=== PATIENT | female | born 1990 | race Caucasian/White ===

== ENCOUNTER 2016-07-20 15:23 | Outpatient (CLI) | payer OTHER ==
[~2016-07-20] VITALS: Ht 160 cm; Wt 113.8 kg
[~2016-07-20 15:23] MED LIST: PNV11TAB PO
[2016-07-20 15:32] VITALS: Ht 160 cm; Wt 113.8 kg
[2016-07-20 16:08] LABS: ADD UMIC YES; URINE BILIRUBIN (Dip) NEGATIVE (NEGATIVE); URINE BLOOD (Dip) NEGATIVE (NEGATIVE); URINE COLOR LT. YELLOW (YELLOW); URINE GLUCOSE (Dip) NEGATIVE (NEGATIVE); URINE KETONES (Dip) TRACE (NEGATIVE); URINE LEUKOCYTE ESTERASE (Dip) TRACE (NEGATIVE); URINE NITRITE (Dip) NEGATIVE (NEGATIVE); URINE TOTAL PROTEIN (Dip) TRACE (NEGATIVE); URINE UROBILINOGEN (Dip) 1.0 E.U./dL (0.1-1.0)
--- NOTE | 2016-07-20 16:09 | RADRPT ---
PROCEDURE: US OB biophysical profile. CLINICAL INDICATION: decreased movements, spontaneous rupture of membranes TECHNIQUE: Multiple sonographic images of the pelvis were obtained. The images were reviewed on a PACS workstation. COMPARISON: 04/16/2016 FINDINGS: There is a single viable intrauterine gestation. Cardiac activity is present with 121 beats per min [place]. There is a vertex presentation. The placenta is anterior. There is no evidence of placental abruption. There is a normal amount of amniotic fluid with an IGNACIO = 13.3 cm. Biophysical profile: movement 2/2 tone 2/2. breathing 2/2 IGNACIO 2/2 Total 02/16 RPTAT: AA . IMPRESSION: Normal biophysical profile. . .Lamine Connolly MD, MD Date Time Electronically viewed and signed by .Lamine Connolly MD, MD on 07/20/2016 16:09 .S/
--- NOTE | 2016-07-20 16:16 | RADRPT ---
PROCEDURE: Limited obstetric ultrasound CLINICAL INDICATION: Spontaneous rupture of membranes TECHNIQUE: Multiple transverse and longitudinal grayscale images of the pelvis were obtained tra nsvaginally.. COMPARISON: same day FINDINGS: The cervix is closed with a length of 3.8 cm. RPTAT: AA IMPRESSION: Cervix length measures 3.8 cm. .Lamine Connolly MD, MD Date Time Electronically viewed and signed by .Lamine Connolly MD, MD on 07/20/2016 16:16 .S/
[2016-07-20 16:24] LABS: URINE RBCS 0-2 /HPF (0)
[2016-07-20 16:25] LABS: BACTERIA,URINE FEW; SQUAMOUS EPITHELIAL CELL,UR FEW
--- NOTE | 2016-07-20 17:21 | PN ---
DATE: The patient is a 36-year-old who presents at 33 weeks complaining of leaking of fluid. No other com plaints. Category 1 tracing. Ultrasound, labs, ROM Plus are all negative. The patient stable. Th e patient will be discharged home. Followup will be OB this week. ER precautions given. The patie nt is stable upon discharge. Dictated By: HEIDI GANDHI MD /NTS Conf#: [id number] DID#: [id number]
--- NOTE | 2016-07-20 18:18 | TRIAGE ---
OB Triage Datetime Report Generated by CPN: 07/20/2016 18:18 Datetime: 07/20/2016 16:38 Labor Evaluation Frequency: 0 Monitor Mode: External Resting Tone [place]: Relaxed Heart Rate FHR Baseline Rate: 125 Monitor Mode: External US Variability: Moderate 6-25 bpm Accelerations: 10X10 Decelerations: None Category: Category I Pain Assessment Pain Scale: 0 Pain Presence: None/Denies Pain Type: N/A Pain Goal: 3 Pain Relief Measures: Comfort Measures Datetime: 07/20/2016 16:35 Stage of : OB Triage Datetime: 07/20/2016 15:54 Stage of : OB Triage Datetime: 07/20/2016 15:44 Stage of : OB Triage Datetime: 07/20/2016 15:39 Vaginal Exam Dilatation (cms): 0.0 Exam By: s harsha Vaginal Bleeding: None Cervix, Consistency: Firm Cervix, Position: Posterior Datetime: 07/20/2016 15:28 Stage of : OB Triage Assessment Type: Triage EGA: 33.5 Maternal Assessment Level of Consciousness: Fully Conscious DTR's/Clonus: DTRs 2+; No Clonus Headache: Denies Blurred Vision: No Respiratory Effort: Unlabored; Regular Rhythm; Equal Expansion Breath Sounds, Left: Clear and Equal Breath Sounds, Right: Clear and Equal Nausea/Vomiting: Denies RUQ Epigastric Pain: Denies Lower Extremities Edema: None Degree: None Upper Extremities Edema: None Degree: None Facial Edema: None Temperature Route: Axillary Fall Risk Assessment History of Falling: (0) No Secondary Diagnosis: (0) No Ambulatory Aid: (0) Bedrest/Nurse Assist IV Therapy: (0) No Gait: (0) Normal/Bedrest/Immobile Mental Status: (0) Oriented to Own Ability Fall Score: 0 Fall Risk Score Definition: No Risk: No action required Labor Evaluation Frequency: 0 Monitor Mode: External Resting Tone [place]: Relaxed Heart Rate FHR Baseline Rate: 135 Monitor Mode: External US Variability: Moderate 6-25 bpm Decelerations: None Category: Category I Pain Assessment Pain Scale: 0 Pain Presence: None/Denies Pain Type: N/A Pain Goal: 3 Pain Relief Measures: Comfort Measures Datetime: 07/20/2016 15:27 Time of Arrival: 07/20/2016 15:13 Arrived By: Ambulatory Arrived From: Office Chief Complaint: SENT FROM OFFICE TO R/O SROM, DENIES UC'S OR BLEEDING Movement: Present Contractions: Denies/Absent Rupture of Membranes: Unsure Vaginal Bleeding: None Vaginal Discharge: Present Recent Sexual Intercouse: Denies Abdominal Trauma: Not Applicable Patient Complaints: None Time Provider Notified: 07/20/2016 15:54 Provider Notified: RENE Initial Plan: MONITOR, ROM PLUS, NITRAZINE, BPP/IGNACIO, CL
== END 2016-07-20 17:21 | disposition home or self-care (01) ==
LOC: OBT 15:23 → L-D 15:24 → OBT 17:21
PROVIDERS: ATTEND Obstetrics & Gynecology
DX: O26.893 Other specified pregnancy related conditions, third trimester (principal); O36.8130 Decreased fetal movements, third trimester, not applicable or unspecified; Z3A.33 33 weeks gestation of pregnancy
CPT/HCPCS: 76817; 76818; 81001; 84112; Z7500; 81003; G0463

== ENCOUNTER 2016-08-06 13:26 | Outpatient (CLI) | payer OTHER ==
[~2016-08-06] VITALS: Ht 160 cm; Wt 115.4 kg
[2016-08-06 13:54] VITALS: Ht 160 cm; Wt 115.4 kg
[2016-08-06 13:55] VITALS: BP 134/76; PULSE 88; RESP 19
[2016-08-06 13:56] LABS: ADD UMIC YES; URINE BILIRUBIN (Dip) NEGATIVE (NEGATIVE); URINE BLOOD (Dip) NEGATIVE (NEGATIVE); URINE COLOR LT. YELLOW (YELLOW); URINE GLUCOSE (Dip) NEGATIVE (NEGATIVE); URINE KETONES (Dip) NEGATIVE (NEGATIVE); URINE LEUKOCYTE ESTERASE (Dip) 1+ (NEGATIVE); URINE NITRITE (Dip) NEGATIVE (NEGATIVE); URINE TOTAL PROTEIN (Dip) TRACE (NEGATIVE); URINE UROBILINOGEN (Dip) 0.2 E.U./dL (0.1-1.0)
[2016-08-06 13:58] LABS: BASOPHILS % 0.3 % (0.0-2.0); EOSINOPHILS # 0.1 10^3/ul (0.0-0.5); EOSINOPHILS % 0.7 % (0.0-7.0); HEMATOCRIT 33.9 % (37.0-47.0); HEMOGLOBIN 11.7 g/dl (12.0-16.0); LYMPHOCYTES # 2.2 10^3/ul (0.8-2.9); LYMPHOCYTES % 26.5 % (15.0-51.0); MEAN CORPUSCULAR HEMOGLOBIN 29.2 pg (29.0-33.0); MEAN CORPUSCULAR HGB CONC 34.5 g/dl (32.0-37.0); MEAN CORPUSCULAR VOLUME 84.7 fl (82.0-101.0); MEAN PLATELET VOLUME 8.7 fl (7.4-10.4); MONOCYTE # 0.5 10^3/ul (0.3-0.9); MONOCYTES % 5.6 % (0.0-11.0); NEUTROPHIL # 5.5 10^3/ul (1.6-7.5); NEUTROPHILS % 66.9 % (39.0-77.0); PLATELET COUNT 213 10^3/UL (140-440); RED BLOOD COUNT 4.01 10^6/ul (4.20-5.40); RED CELL DISTRIBUTION WIDTH 13.9 % (11.5-14.5); UNCORRECTED WBC 8.3 10^3/ul (4.8-10.8); WHITE BLOOD COUNT 8.3 10^3/ul (4.8-10.8)
[2016-08-06 14:00] LABS: CONDITION 1
[2016-08-06 14:01] LABS: ALBUMIN 3.5 g/dl (3.3-4.9)
[2016-08-06 14:02] LABS: POTASSIUM 4.3 mmol/L (3.5-5.1)
[2016-08-06 14:04] LABS: ALBUMIN/GLOBULIN RATIO 0.87; BILIRUBIN,INDIRECT 0.3 mg/dl (0-1.1); BILIRUBIN,TOTAL 0.3 mg/dl (0.2-1.3); CREATININE 0.38 mg/dl (0.44-1.00); TOTAL PROTEIN 7.5 g/dl (6.1-8.1)
[2016-08-06 14:05] LABS: CALCIUM 8.9 mg/dl (8.4-10.2)
[2016-08-06 14:40] LABS: BACTERIA,URINE FEW
[2016-08-06 14:45] LABS: URINE RBCS NONE SEEN /HPF (0)
--- NOTE | 2016-08-06 15:06 | RADRPT ---
PROCEDURE: US OB. CLINICAL INDICATION: Low IGNACIO TECHNIQUE: Transabdominal views of the pelvis are available for review. COMPARISON: Obstetrical ultrasound from 07/20/2016 FINDINGS: There is a single intrauterine gestation in a vertex position. The heart rate is present at 164 bpm. Abdominal circumference is 34.98 cm. Femur length is 7.57 cm. The estimated weight is 3628 grams. (Above the 97th percentile) The placenta is anterior. There is no evidence of placenta previa or a placental abruption. The IGNACIO measures 13.1 cm. RPTAT: AA IMPRESSION: Normal IGNACIO of 13.1 cm. Estimated weight is 3628 g which is above the 97th percentile. Physician Gt Date Time Electronically viewed and signed by Maxx Tavares Physician on 08/06/2016 15:06 /
--- NOTE | 2016-08-06 15:42 | QN ---
Documentation Comment 26 y/o female at 36.1 weeks sent in to R/O PI all blood pressures are NL all labs appear normal dedra D/C gome with F/U in NST MARION MUELLER MD Aug 06, 2016 15:42
== END 2016-08-06 15:54 | disposition home or self-care (01) ==
LOC: OBT 13:26 → L-D 13:27 → OBT 15:54
PROVIDERS: ATTEND Obstetrics & Gynecology
DX: O26.893 Other specified pregnancy related conditions, third trimester (principal); Z3A.36 36 weeks gestation of pregnancy
CPT/HCPCS: 76815; 80053; 81001; 84560; 85025; Z7500; 81003; G0463

== ENCOUNTER 2016-08-21 10:25 | Inpatient (IN) | payer OTHER ==
[~2016-08-21] VITALS: Ht 160 cm; Wt 118.8 kg
[2016-08-21 11:12] VITALS: Ht 160 cm; Wt 118.8 kg
[2016-08-21 11:18] VITALS: BP 132/58; PULSE 77; RESP 20
[2016-08-21] MEDS ORDERED: ACETAMINOPHEN/CODEINE #3 TAB PO PRN (11:30)
[2016-08-21] MEDS ORDERED: CARBOPROST 250 MCG INJ IM PRN (11:30)
[2016-08-21] MEDS ORDERED: BUTORPHANOL 2 MG INJ IV PRN (11:30)
[2016-08-21] MEDS ORDERED: AMPICILLIN 2 GM/NS (PMX) 100 ML IV ONE (11:30)
[2016-08-21] MEDS ORDERED: METHYLERGONOVINE 0.2 MG INJ IM PRN (11:30)
[2016-08-21] MEDS ORDERED: MISOPROSTOL 200 MCG TAB PR PRN (11:30)
[2016-08-21] MEDS ORDERED: IBUPROFEN 600 MG TAB PO PRN (11:30)
[2016-08-21] MEDS ORDERED: LIDOCAINE 1% (MPF) 30 ML INJ INJ PRN (11:30)
[2016-08-21] MEDS ORDERED: OXYTOCIN 30 UNITS/LR 500 ML IV SCH ×3 (11:30→14:30)
[2016-08-21] MEDS ORDERED: OXYTOCIN 30 UNITS/LR 500 ML IV PRN (11:30)
[2016-08-21] MEDS: LACTATED RINGER'S 1,000 ML IV SCH ×3 (11:36→23:34)
[2016-08-21 11:50] LABS: ADD SCAN DIFF NO
[2016-08-21 11:54] LABS: BASOPHILS % 0.2 % (0.0-2.0); EOSINOPHILS # 0.1 10^3/ul (0.0-0.5); EOSINOPHILS % 0.8 % (0.0-7.0); HEMATOCRIT 30.6 % (37.0-47.0); HEMOGLOBIN 10.4 g/dl (12.0-16.0); LYMPHOCYTES # 1.9 10^3/ul (0.8-2.9); LYMPHOCYTES % 30.6 % (15.0-51.0); MEAN CORPUSCULAR HEMOGLOBIN 29.1 pg (29.0-33.0); MEAN CORPUSCULAR VOLUME 85.5 fl (82.0-101.0); MEAN PLATELET VOLUME 11.4 fl (7.4-10.4); MONOCYTE # 0.4 10^3/ul (0.3-0.9); MONOCYTES % 6.3 % (0.0-11.0); NEUTROPHIL # 3.9 10^3/ul (1.6-7.5); NEUTROPHILS % 61.9 % (39.0-77.0); PLATELET COUNT 173 10^3/UL (140-415); RED BLOOD COUNT 3.58 10^6/ul (4.20-5.40); RED CELL DISTRIBUTION WIDTH 13.6 % (11.5-14.5); WHITE BLOOD COUNT 6.4 10^3/ul (4.8-10.8)
[2016-08-21 12:07] LABS: POTASSIUM 4.3 mmol/L (3.5-5.1)
[2016-08-21 12:09] LABS: BILIRUBIN,INDIRECT 0.3 mg/dl (0-1.1); BILIRUBIN,TOTAL 0.3 mg/dl (0.2-1.3); CREATININE 0.39 mg/dl (0.44-1.00)
[2016-08-21 12:10] LABS: ALBUMIN/GLOBULIN RATIO 0.88; CALCIUM 8.8 mg/dl (8.4-10.2); TOTAL PROTEIN 6.4 g/dl (6.1-8.1)
[2016-08-21 12:15] LABS: INR 0.99; PROTIME 13.1 Sec (12.2-14.2)
[2016-08-21 12:16] LABS: PARTIAL THROMBOPLASTIN TIME 27.3 Sec (25.0-35.0)
[2016-08-21 12:38] LABS: ADD UMIC YES; URINE BILIRUBIN (Dip) NEGATIVE (NEGATIVE); URINE BLOOD (Dip) NEGATIVE (NEGATIVE); URINE COLOR LT. YELLOW (YELLOW); URINE GLUCOSE (Dip) NEGATIVE (NEGATIVE); URINE KETONES (Dip) NEGATIVE (NEGATIVE); URINE LEUKOCYTE ESTERASE (Dip) TRACE (NEGATIVE); URINE NITRITE (Dip) NEGATIVE (NEGATIVE); URINE TOTAL PROTEIN (Dip) TRACE (NEGATIVE); URINE UROBILINOGEN (Dip) 0.2 E.U./dL (0.1-1.0)
[2016-08-21 12:56] LABS: URINE RBCS 0-2 /HPF (0)
[2016-08-21] MEDS ORDERED: LACTATED RINGER'S 1,000 ML IV PRN (13:00)
[2016-08-21] MEDS: AMPICILLIN 1 GM/NS (PMX) 50 ML IV SCH ×3 (15:24→23:32)
[2016-08-21] MEDS ORDERED: MINERAL OIL LIGHT 10 ML VIAL TOP PRN (18:00)
[2016-08-21] MEDS ORDERED: FENTAnyl 2MCG/ML-ROPIV 0.2% 100 ML ONE (20:17)
[2016-08-21] MEDS ORDERED: ONDANSETRON 4 MG INJ IV PRN (20:30)
[2016-08-21] MEDS ORDERED: NALOXONE (0.4 MG/ML) INJ IV PRN (20:30)
[2016-08-21] MEDS ORDERED: DIPHENHYDRAMINE 50 MG INJ IV PRN (20:30)
--- NOTE | 2016-08-21 20:48 | HP ---
Date/Time of Note Date/Time of Note DATE: 08/21/16 TIME: 20:26 OB - History Hx of Present Free Text/Dictation admitted for induction of the labor because of Hx of HTN and elevated BP in NST Estimated Due Date: Aug 31, 2016 : 3 Para: 2 Care: Good Care Ultrasounds: Normal mid trimester US Obstetrical Complications: Other (PIH or Htn) Medical Complications: Other (? HTN) Past Family/Social History * Past Medical, Surgical, Family and Obstetric Histories reviewed from chart. GBS Status: Positive OB Admission Exam Vital Signs Vital Signs Vital Signs Date Time Temp Pulse Resp B/P Pulse Ox O2 Delivery O2 Flow Rate FiO2 08/21/16 11:18 98.3 77 20 132/58 Room Air Physical Exam HEENT: WNL Heart: Rhythm Normal Lungs: Clear, Equal Abdomen: WNL Extremities: Normal Reflexes: Normal Cervical Dilatation: 2cm Effacement: 25% Station: -3 Membranes: Intact Heart Rate: 140's Accelerations: Accelerations Present Decelerations: No Decelerations Varibility: Marked Contractions on Admission: None Last 72 hours Lab Results CBC & BMP 08/21/16 11:33 Liver Function Test 08/21/16 11:33 Alanine Aminotransferase (ALT/SGPT) 21 Albumin 3.0 L Alkaline Phosphatase 133 H Aspartate Amino Transf (AST/SGOT) 22 Direct Bilirubin 0.00 Total Protein 6.4 OB Assessment/Plan Reason for admission: induction of labor Other Assessment: ?PIH( reported to have 2 + proteinuria and elevated BP) term gestation Induction Method: per Pitocin Protocol MARION MUELLER MD Aug 21, 2016 20:46
[2016-08-21] MEDS ORDERED: MAGNESIUM SULFATE 3 GM in SOD CHLORIDE 0.9% 100 ML IVPB ONE (21:00)
[2016-08-21] MEDS ORDERED: ACETAMINOPHEN 325 MG TAB PO PRN (21:00)
[2016-08-21] MEDS ORDERED: MAGNESIUM SULFATE 20 GM/500 ML 500 ML IV SCH (21:30)
[2016-08-22] MEDS: FENTAnyl 2MCG/ML-ROPIV 0.2% 100 ML BAG EPI SCH ×2 (03:12→11:04)
[2016-08-22] MEDS: AMPICILLIN 1 GM/NS (PMX) 50 ML IV SCH ×4 (03:23→16:29)
[2016-08-22] MEDS: LACTATED RINGER'S 1,000 ML IV SCH (11:42)
--- NOTE | 2016-08-22 19:00 | LDN ---
Date/Time of Note Date/Time of Note DATE: 08/22/16 TIME: 18:57 Delivery Summary of a viable over intact perineum Placenta Delivered: Spontaneously, Intact & Complete Meconium: none Perineum intact?: Yes Anesthesia type: Epidural Estimated blood loss: 200 Sponge & Needle done & correct: Yes All needle counts correct: Yes Any foreign bodies felt in the: No Problems: Delivery Information Sex Infant Sex: male Apgars 1 Minute: 9 5 Minute: 9 Suctioning Nose & mouth suctioned at adan: Yes Delee suction performed: No Umbilical Cord Umbilical cord with: 3 Vessels Cord presentations: no nuchal cord Cord Blood was obtained: Yes Mother & Baby Disposition Disposition Mom & Baby to Maternity; Good: Yes (mother and baby were recovered in good condition) Mom transferred to: Other (maternity ) Baby to NICU: No MARION MUELLER MD Aug 22, 2016 18:59
[2016-08-22] MEDS: LACTATED RINGER'S 1,000 ML IV* SCH (20:25)
[2016-08-22] MEDS ORDERED: MISOPROSTOL 200 MCG TAB PR PRN (20:30)
[2016-08-22] MEDS ORDERED: ACETAMINOPHEN/CODEINE #3 TAB PO PRN ×2 (20:30)
[2016-08-22] MEDS ORDERED: WITCH HAZEL/GLYCERIN PAD PR PRN (20:30)
[2016-08-22] MEDS ORDERED: METHYLERGONOVINE 0.2 MG INJ IM PRN (20:30)
[2016-08-22] MEDS ORDERED: CARBOPROST 250 MCG INJ IM PRN (20:30)
[2016-08-22] MEDS ORDERED: OXYTOCIN 30 UNITS/LR 500 ML IV PRN (20:30)
[2016-08-22] MEDS ORDERED: BENZOCAINE 20% 56 ML SPRAY TOP PRN (20:30)
[2016-08-22] MEDS ORDERED: ZOLPIDEM 5 MG TAB PO PRN (20:30)
[2016-08-22] MEDS ORDERED: LANOLIN 7 GM TUBE TOP PRN (20:30)
[2016-08-22] MEDS ORDERED: DIBUCAINE 1% 30 GM OINT PR PRN (20:30)
[2016-08-22] MEDS: MAGNESIUM HYDROXIDE 30ML CUP PO SCH (21:00)
[2016-08-22] MEDS: SENNA/DOCUSATE NA (8.6MG/50MG) TAB PO SCH (21:00)
[2016-08-22 21:30] VITALS: BP 146/88; PULSE 74; RESP 20
[2016-08-22] MEDS ORDERED: OXYTOCIN 30 UNITS/LR 500 ML IV SCH (21:30)
[2016-08-22 22:45] VITALS: BP 130/66; PULSE 72
[2016-08-23 00:30] VITALS: BP 134/76; PULSE 68; RESP 18
[2016-08-23] MEDS: LACTATED RINGER'S 1,000 ML IV* SCH (00:47)
[2016-08-23] MEDS: CEPHALEXIN 500 MG CAP PO SCH ×5 (00:48→23:54)
[2016-08-23] MEDS: IBUPROFEN 600 MG TAB PO SCH ×5 (00:48→23:54)
[2016-08-23 03:45] VITALS: BP 109/54; PULSE 75; RESP 18
[2016-08-23 07:30] LABS: BASOPHILS % 0.4 % (0.0-2.0); EOSINOPHILS # 0.1 10^3/ul (0.0-0.5); EOSINOPHILS % 1.1 % (0.0-7.0); HEMATOCRIT 29.6 % (37.0-47.0); LYMPHOCYTES # 2.7 10^3/ul (0.8-2.9); LYMPHOCYTES % 34.9 % (15.0-51.0); MEAN CORPUSCULAR HEMOGLOBIN 29.1 pg (29.0-33.0); MEAN CORPUSCULAR HGB CONC 33.7 g/dl (32.0-37.0); MEAN CORPUSCULAR VOLUME 86.4 fl (82.0-101.0); MEAN PLATELET VOLUME 9.5 fl (7.4-10.4); MONOCYTE # 0.5 10^3/ul (0.3-0.9); NEUTROPHIL # 4.3 10^3/ul (1.6-7.5); NEUTROPHILS % 56.6 % (39.0-77.0); PLATELET COUNT 170 10^3/UL (140-440); RED BLOOD COUNT 3.43 10^6/ul (4.20-5.40); RED CELL DISTRIBUTION WIDTH 14.3 % (11.5-14.5); UNCORRECTED WBC 7.6 10^3/ul (4.8-10.8); WHITE BLOOD COUNT 7.6 10^3/ul (4.8-10.8)
[2016-08-23 07:40] LABS: CONDITION 1
[2016-08-23 08:00] VITALS: BP 116/70; PULSE 78; RESP 18
[2016-08-23] MEDS: MAGNESIUM HYDROXIDE 30ML CUP PO SCH ×2 (08:33→20:41)
[2016-08-23] MEDS: SENNA/DOCUSATE NA (8.6MG/50MG) TAB PO SCH ×2 (08:33→20:41)
[2016-08-23 16:15] VITALS: BP 120/67; PULSE 66; RESP 18
[2016-08-23 20:15] VITALS: BP 114/59; PULSE 76; RESP 20
[2016-08-24 04:15] VITALS: BP 125/63; PULSE 68; RESP 20
[2016-08-24] MEDS: CEPHALEXIN 500 MG CAP PO SCH ×3 (06:21→17:46)
[2016-08-24] MEDS: IBUPROFEN 600 MG TAB PO SCH ×3 (06:21→17:46)
[2016-08-24 08:00] VITALS: BP 116/57; PULSE 68; RESP 19
[2016-08-24] MEDS ORDERED: VARICELLA VACCINE LIVE/PF 1,350 UNIT/0.5 ML ML SC* ONE (09:00)
[2016-08-24] MEDS ORDERED: DIPHTH/TET/ACEL PERTUSS (ADULT) 0.5 ML VIAL IM* ONE (09:00)
[2016-08-24] MEDS ORDERED: INFLUENZA VIRUS VACCINE 0.5 ML (DISPENSING) IM* ONE (09:00)
[2016-08-24] MEDS ORDERED: MEASLES,MUMPS,RUBELLA VACCINE INJ SC* ONE (09:00)
[2016-08-24] MEDS: MAGNESIUM HYDROXIDE 30ML CUP PO SCH (10:05)
[2016-08-24] MEDS: SENNA/DOCUSATE NA (8.6MG/50MG) TAB PO SCH (10:06)
--- NOTE | 2016-08-24 14:33 | DS ---
Date/Time of Note Date/Time of Note home next day late entry DATE: 08/23/16 Obstetrical Discharge Record Final Diagnosis Final Diagnosis: Term delivered Other Final Diagnosis S/P vaginal delivery Vaginal Delivery Obstetrical Delivery: Spontaneous Complications Induction: Yes Condition on Discharge Physical Assessment Last Vitals: see nurses notes Voiding: Yes Bowel Movement: Yes Breast: Soft, non-tender, Filling Fundus: Firm Abdomen and Incision: soft BS + Episiotomy: NA Calf Tenderness: No Patient Condition: Good MARION MUELLER MD Aug 24, 2016 14:33
[2016-08-24] MEDS ORDERED: IBUP-1542 PO (14:35)
--- NOTE | 2016-08-24 14:35 | PD.PPDC ---
[employer] Discharge Instruction Provider Information Physician Information 26 y/o female had vaginal delivery Diagnosis Final Diagnosis: S/P vaginal delivery Condition Patient Condition: Good Diet Diet: Resume Regular Diet Activity/Restrictions Activity: Normal Activity May Shower Restrictions: Nothing in the Vagina Return to Work or School: Oct 05, 2016 Follow-up Follow-up with Physician: 4, Week/Weeks Return to clinic for OB Instructions: Breast Tenderness Depression MARION MUELLER MD Aug 24, 2016 14:35
[2016-08-24 16:31] VITALS: BP 138/74; PULSE 63; RESP 18
--- NOTE | 2016-08-26 21:27 | NSTRPT ---
NST Information Datetime Report Generated by CPN: 08/26/2016 21:26 Datetime: 08/21/2016 08:27 NST Information EGA: 38.2 Test Number: 2 Time on Monitor: 08/21/2016 08:48 Time off Monitor: 08/21/2016 09:56 NST Duration (Min): 68 Reason for NST: Chronic Hypertension Test and Monitor Explained: Monitor Explained; Test Explained; Verbalized Understanding Pulse: 80 Resp: 19 SBP: 140 DBP: 76 Test Evaluation NST Interventions: Reposition Patient Patient States Movement: Present Contraction Frequency: irregular(3/10) FHR Baseline : 130 Variability: Moderate 6-25bpm Accelerations: 15X15 Decelerations: None FHR Category: Category I NST Results: Reactive Comments: PT TO U/S. IGNACIO 9.8, cephalic. Pt c/o headaches, blurry vision, swollen hands and occasi onal "gushing" as stated by patient. Report given to Dr. Salguero and Laborist. New orders. Send pt to OB-TRG for evaluation of Gestational hypertension. Explained to pt Plan of care. pt states understa nding. 1000-pt to OB-TRG as ordered. Electronically Signed By E-Signature: with User ID: [id number] Datetime: 08/19/2016 10:30 NST Information EGA: 38.0 Test Number: 1 Time on Monitor: 08/19/2016 10:49 Time off Monitor: 08/19/2016 11:19 NST Duration (Min): 30 Reason for NST: Gestational Hypertension Test and Monitor Explained: Monitor Explained; Test Explained; Verbalized Understanding; Breastfee ding Info Given Pulse: 73 Resp: 18 SBP: 124 DBP: 60 Test Evaluation NST Interventions: None Patient States Movement: Present Contraction Frequency: irregular(denies) FHR Baseline : 125 Variability: Moderate 6-25bpm Accelerations: 15X15 Decelerations: None FHR Category: Category I NST Results: Reactive Comments: PT TO U/S. IGNACIO 15.7cm. CEPHALIC. Pt Home undelivered with LABOR precautions. Follow up N ST apointment given. Kick Count instructions reviewed. Pt states understanading. No further qu estions asked at this time.
--- NOTE | 2016-08-26 21:28 | NSTRPT ---
NST Information Datetime Report Generated by CPN: 08/26/2016 21:28 Datetime: 08/19/2016 10:30 Electronically Signed By E-Signature: with User ID: [id number]
== END 2016-08-24 18:25 | disposition home or self-care (01) | DRG 774 ==
LOC: L-D 10:25 → PP1 08-22 21:13 → EDSTATUS 09-02 10:19
PROVIDERS: ADMIT Obstetrics & Gynecology; ATTEND Obstetrics & Gynecology
PROC: 10E0XZZ Delivery of Products of Conception, External Approach (ICD-10-PCS; principal; 2016-08-22)
DX: O10.92 Unspecified pre-existing hypertension complicating childbirth (principal); Z68.42 Body mass index [BMI] 45.0-49.9, adult; O99.214 Obesity complicating childbirth; E66.01 Morbid (severe) obesity due to excess calories; Z3A.38 38 weeks gestation of pregnancy; Z37.0 Single live birth
CPT/HCPCS: 62319; 80053; 81001; 81003; 83735; 84560; 85025; 85610; 85730; 86592; 86900; 86901; 90686; 90715; 90716; J0290; J2590; J3010; J3475; J7120

== ENCOUNTER 2017-03-04 08:50 | Emergency (ER) | payer OTHER ==
[~2017-03-04] VITALS: Ht 160 cm; Wt 101.0 kg
[~2017-03-04 08:50] MED LIST changes: +IBUP-1542 PO
[2017-03-04 08:53] VITALS: Ht 160 cm; Wt 101.0 kg
[2017-03-04] MEDS ORDERED: FAMOTIDINE 20 MG TAB PO STA (09:18)
[2017-03-04] MEDS ORDERED: morphine 4 MG/ML VIAL IV STA (09:18)
[2017-03-04] MEDS ORDERED: ONDANSETRON 4 MG INJ IV STA (09:18)
[2017-03-04] MEDS ORDERED: ACETAMINOPHEN 500 MG TAB PO STA (09:31)
--- NOTE | 2017-03-04 09:38 | ERD ---
ER Documentation Chief Complaint Date/Time DATE: 03/04/17 TIME: 09:35 Chief Complaint epigastric pain with nausea/vomiting x 2 days HPI This is a 27-year-old female who presents to the emergency department today complaining of some abdominal pain, nausea, vomiting, headache, back pain for the past couple of days. She states she has not taken any medication for the pain. States that she had a baby 6 months ago and is currently breast-feeding. Denies any fevers or chills, diarrhea. ROS All systems reviewed and are negative except as per history of present illness. Medications Home Meds Active Scripts Cephalexin* (Keflex*) 500 Mg Capsule, 500 MG PO QID for 7 Days, CAP Prov:ZAKI AHUMADA PA-C 03/04/17 Ondansetron Hcl* (Zofran*) 4 Mg Tablet, 4 MG PO Q6H for NAUSEA AND/OR VOMITING, #30 TAB Prov:ZAKI AHUMADA PA-C 03/04/17 Acetaminophen* (Tylophen*) 500 Mg Capsule, 1 CAP PO Q6H Y for PAIN AND OR ELEVATED TEMP, #30 CAP Prov:ZAKI AHUMADA PA-C 03/04/17 Ibuprofen* (Ibuprofen*) 600 Mg Tablet, 600 MG PO Q6, #20 TAB 0 Refills Prov:MARION MUELLER MD 08/24/16 Reported Medications [id number] ( 19) 1 Each Tablet, 1 TAB PO DAILY, TAB 04/16/16 Allergies Allergies: Coded Allergies: No Known Drug Allergy (Verified Allergy, Mild, 08/22/16) PMhx/Soc History of Surgery: No Anesthesia Reaction: No Hx Neurological Disorder: No Hx Respiratory Disorders: No Hx Cardiac Disorders: No Hx Psychiatric Problems: No Hx Miscellaneous Medical Probl: No Hx Alcohol Use: Yes (Couple beers every few months) Hx Substance Use: No Hx Tobacco Use: No Physical Exam Vitals Vital Signs Date Time Temp Pulse Resp B/P Pulse Ox O2 Delivery O2 Flow Rate FiO2 03/04/17 08:53 98.1 74 18 147/71 98 Physical Exam Const: Obese, no acute distress Head: Atraumatic Eyes: Normal Conjunctiva ENT: Normal External Ears, Nose and Mouth. Neck: Full range of motion..~ No meningismus. Resp: Clear to auscultation bilaterally Cardio: Regular rate and rhythm, no murmurs Abd: Soft epigastric, mild periumbilical tenderness, non distended. Normal bowel sounds Skin: No petechiae or rashes Back: No midline or flank tenderness Ext: No cyanosis, or edema Neur: Awake and alert Psych: Normal Mood and Affect Result Diagram: 03/04/1728 03/04/1728 Results 24 hrs Laboratory Tests Test 03/04/17 09:28 White Blood Count 6.610^3/ul Red Blood Count 4.2910^6/ul Hemoglobin 12.8g/dl Hematocrit 37.8% Mean Corpuscular Volume 88.1fl Mean Corpuscular Hemoglobin 29.8pg Mean Corpuscular Hemoglobin Concent 33.9g/dl Red Cell Distribution Width 11.9% Platelet Count 97627^3/UL Mean Platelet Volume 10.4fl Neutrophils % 60.3% Lymphocytes % 33.4% Monocytes % 4.9% Eosinophils % 0.9% Basophils % 0.3% Nucleated Red Blood Cells % 0.0/100WBC Neutrophils # (Manual) 410^3/ul Lymphocytes # 2.210^3/ul Monocytes # 0.310^3/ul Eosinophils # 0.110^3/ul Basophils # 0.010^3/ul Nucleated Red Blood Cells # 0.010^3/ul Urine Color YELLOW Urine Clarity SLIGHTLY CLOUDY Urine pH 5.0 Urine Specific [place] 1.024 Urine Ketones NEGATIVEmg/dL Urine Nitrite NEGATIVEmg/dL Urine Bilirubin NEGATIVEmg/dL Urine Urobilinogen NEGATIVEmg/dL Urine Leukocyte Esterase 2+Abhay/ul Urine Microscopic RBC 1/HPF Urine Microscopic WBC 5/HPF Urine Squamous Epithelial Cells FEW/HPF Urine Mucus FEW/HPF Urine Hemoglobin NEGATIVEmg/dL Urine Glucose NEGATIVEmg/dL Urine Total Protein NEGATIVEmg/dl Sodium Level 137mmol/L Potassium Level 4.0mmol/L Chloride Level 103mmol/L Carbon Dioxide Level 22mmol/L Anion Gap 16 Blood Urea Nitrogen 8mg/dl Creatinine 0.56mg/dl Glucose Level 105mg/dl Calcium Level 9.2mg/dl Total Bilirubin 0.6mg/dl Direct Bilirubin 0.00mg/dl Indirect Bilirubin 0.6mg/dl Aspartate Amino Transf (AST/SGOT) 18IU/L Alanine Aminotransferase (ALT/SGPT) 28IU/L Alkaline Phosphatase 100IU/L Total Protein 7.8g/dl Albumin 4.1g/dl Globulin 3.70g/dl Albumin/Globulin Ratio 1.10 Lipase 101U/L Beta HCG, Quantitative 72592.0mIU/ml Current Medications Medications (Trade) Dose Ordered Sig/Andrey Route PRN Reason Start Time Stop Time Status Last Admin Dose Admin Morphine Sulfate (morphine) 4 mg ONCE STAT IV 03/04/17 09:18 03/04/17 09:19 Cancel Ondansetron HCl (Zofran Inj) 4 mg ONCE STAT IV 03/04/17 09:18 03/04/17 09:19 DC 03/04/17 10:33 Famotidine (Pepcid) 20 mg ONCE STAT PO 03/04/17 09:18 03/04/17 09:19 DC 03/04/17 10:33 Acetaminophen (Tylenol Tab) 500 mg ONCE STAT PO 03/04/17 09:31 03/04/17 09:34 DC 03/04/17 10:33 DIAGNOSTIC IMAGING REPORT Patient: WALKER MERLOS : 1990 Age: 27 Sex: F MR #: [id number] DOS: 03/04/17930 Ordering MD: ZAKI AHUMADA PA-C Location: [facility] Room/Bed: PROCEDURE: OBSTETRICAL ULTRASOUND WITH ENDOVAGINAL IMAGES CLINICAL INDICATION: Vaginal Bleed () TECHNIQUE: Multiple sonographic images of the pelvis were obtained utilizing a transabdominal and endovaginal technique. The images were reviewed on a PACS workstation. COMPARISON: None. LMP: 01/23/2017 FINDINGS: The uterus measures 9.5 x 7.4 x 7.7 cm. There is a single live intrauterine with heart rate of 118 beats per minute, mean sac diameter of 1.81 cm, yolk sac, and crown-rump length of 0.52 cm which is consistent with a gestational age of 6 weeks, 3 days . The estimated date of delivery by ultrasound is 10/25/2017 . The estimated gestational age by LMP is 5 weeks, 5 days . The estimated date of delivery by LMP is 10/30/2017 . There is a 3.0 x 1.5 x 1.2 cm hypoechoic lesion adjacent to the gestational sac consistent with a subchorionic hemorrhage. There is a crescentic hypoechoic and lesion measuring 2.0 x 2.1 x 0.3 cm on the opposite side of the gestational sac which may also be a subchorionic hemorrhage. The right ovary measures 4.0 x 2.3 x 2.4 cm. The left ovary measures 3.9 x 1.4 x 2.1 cm. There is normal vascular flow in both ovaries. There is a 2.4 cm thick-walled cystic lesion with moderate peripheral vascular flow in the right ovary which is likely a hemorrhagic/corpus luteal cyst. No significant pelvic free fluid is identified. IMPRESSION: Single live intrauterine consistent with a gestational age of 6 weeks , 3 days . The estimated date of delivery is 10/25/2017 . Dating by ultrasound is within 5 days of dating by LMP. There are 2 subchorionic hemorrhages measuring up to 3 cm and 2.1 cm on the opposite size of the gestational sac. 2.4 cm complex cystic lesion in the right ovary is likely a hemorrhagic/corpus luteal cyst. RPTAT: EE Physician Gt Date Time Electronically viewed and signed by Physician Gt on 03/04/2017 10:32 RA/ CC: ZAKI AHUMADA PA-C Procedures/[facility] This a 27-year-old female who presents to the emergency department today with multiple complaints. Upon review of patient's medical records she has had a history of pancreatitis in the past. Patient indicated that she had her baby 6 months ago and is currently breast-feeding. Given patient's location of pain and history of pancreatitis I did obtain laboratory workup. Given patient's positive test and complaints of abdominal pain, I did do a complete OB workup. Patient was notified about her positive test Laboratory work shows no elevated white blood cell count. She is not anemic. Platelets are within normal limits. Electrolytes are within normal limits. Glucose within normal limits. Lipase within normal limits. Liver enzymes are within normal limits. UA shows 2+ leukocyte esterase. Urine test is positive Beta quant hCG 10478 Rh status O+ Ultrasound shows a single live intrauterine consistent with a gestational age of 6 weeks and 3 days. Estimated date of delivery is October 25, 2017. There is a heart rate of 118 bpm. There are 2 subchorionic hemorrhages measuring up to 3 cm and 2.1 cm on the opposite side of the gestational sac. There is a 2.4 cm complex cystic lesion in the right ovary that is likely a hemorrhagic corpus luteal cyst. Patient denies any vaginal bleeding. Have explained her that she may have some vaginal bleeding with a subchorionic hemorrhages. Patient understood Patient also complains of headache, nausea, abdominal pain, back pain likely related to her and urinary tract infection. Patient is afebrile and otherwise well-appearing. I have low suspicion for ectopic , tubo ovarian abscess, ovarian torsion. Low suspicion for acute surgical abdomen. Patient does not have evidence of acute pancreatitis. I have explained to the patient that she does need to go back to her [facility] for care. She will be given a prescription for Tylenol, Keflex and Zofran. At this time the patient is stable for discharge and outpatient management. Patient should follow up with their PCP in the next 1-2 days. They may return to the emergency department sooner for any persistent or worsening of symptoms. Patient understood and agreed with the plan. Departure Diagnosis: Primary Impression: Multiple complaints Additional Impression: Abdominal pain in Trimester: first trimester Qualified Code: O26.891 - Abdominal pain in , first trimester Condition: ZAKI Alston PA-C Mar 04, 2017 09:37
[2017-03-04 09:46] LABS: ADD UMIC YES; UR ASCORBIC ACID NEGATIVE (NEGATIVE); UR BILIRUBIN (Dip) NEGATIVE (NEGATIVE); UR BLOOD (Dip) NEGATIVE (NEGATIVE); UR CLARITY SLIGHTLY CLOUDY (CLEAR); UR COLOR YELLOW (YELLOW); UR GLUCOSE (Dip) NEGATIVE (NEGATIVE); UR KETONES (Dip) NEGATIVE (NEGATIVE); UR LEUKOCYTE ESTERASE (Dip) 2+ Leu/ul (NEGATIVE); UR MUCUS FEW /HPF (NONE SEEN); UR NITRITE (Dip) NEGATIVE (NEGATIVE); UR RBC 1 /HPF (0-5); UR SPECIFIC GRAVITY (Dip) 1.024 (1.003-1.030); UR SQUAMOUS EPITHELIAL CELL FEW /HPF (FEW); UR TOTAL PROTEIN (Dip) NEGATIVE (NEGATIVE); UR UROBILINOGEN (Dip) NEGATIVE (NEGATIVE)
[2017-03-04 09:50] LABS: BASOPHILS % 0.3 % (0.0-2.0); EOSINOPHILS # 0.1 10^3/ul (0.0-0.5); EOSINOPHILS % 0.9 % (0.0-7.0); HEMATOCRIT 37.8 % (37.0-47.0); HEMOGLOBIN 12.8 g/dl (12.0-16.0); LYMPHOCYTES # 2.2 10^3/ul (0.8-2.9); LYMPHOCYTES % 33.4 % (15.0-51.0); MEAN CORPUSCULAR HEMOGLOBIN 29.8 pg (29.0-33.0); MEAN CORPUSCULAR HGB CONC 33.9 g/dl (32.0-37.0); MEAN CORPUSCULAR VOLUME 88.1 fl (82.0-101.0); MEAN PLATELET VOLUME 10.4 fl (7.4-10.4); MONOCYTE # 0.3 10^3/ul (0.3-0.9); MONOCYTES % 4.9 % (0.0-11.0); NEUTROPHILS % 60.3 % (39.0-77.0); PLATELET COUNT 206 10^3/UL (140-415); RED BLOOD COUNT 4.29 10^6/ul (4.20-5.40); RED CELL DISTRIBUTION WIDTH 11.9 % (11.5-14.5); WHITE BLOOD COUNT 6.6 10^3/ul (4.8-10.8)
[2017-03-04 10:33] LABS: ALBUMIN 4.1 g/dl (3.3-4.9); ALBUMIN/GLOBULIN RATIO 1.1; BILIRUBIN,INDIRECT 0.6 mg/dl (0-1.1); BILIRUBIN,TOTAL 0.6 mg/dl (0.2-1.3); CALCIUM 9.2 mg/dl (8.4-10.2); CREATININE 0.56 mg/dl (0.44-1.00); TOTAL PROTEIN 7.8 g/dl (6.1-8.1)
--- NOTE | 2017-03-04 10:33 | RADRPT ---
PROCEDURE: OBSTETRICAL ULTRASOUND WITH ENDOVAGINAL IMAGES CLINICAL INDICATION: Vaginal Bleed () TECHNIQUE: Multiple sonographic images of the pelvis were obtained utilizing a transabdominal and endovaginal technique. The images were reviewed on a PACS workstation. COMPARISON: None. LMP: 01/23/2017 FINDINGS: The uterus measures 9.5 x 7.4 x 7.7 cm. There is a single live intrauterine with heart rate of 118 beats per minute, mean sa c diameter of 1.81 cm, yolk sac, and crown-rump length of 0.52 cm which is consistent with a gestati onal age of 6 weeks, 3 days . The estimated date of delivery by ultrasound is 10/25/2017 . The estimated gestational age by LMP is 5 weeks, 5 days . The estimated date of delivery by LMP is 10/30/2017 . There is a 3.0 x 1.5 x 1.2 cm hypoechoic lesion adjacent to the gestational sac consistent with a eller bchorionic hemorrhage. There is a crescentic hypoechoic and lesion measuring 2.0 x 2.1 x 0.3 cm on the opposite side of the gestational sac which may also be a subchorionic hemorrhage. The right ovary measures 4.0 x 2.3 x 2.4 cm. The left ovary measures 3.9 x 1.4 x 2.1 cm. There is no rmal vascular flow in both ovaries. There is a 2.4 cm thick-walled cystic lesion with moderate peripheral vascular flow in the right ova ry which is likely a hemorrhagic/corpus luteal cyst. No significant pelvic free fluid is identified. IMPRESSION: Single live intrauterine consistent with a gestational age of 6 weeks, 3 days . The estimated date of delivery is 10/25/2017 . Dating by ultrasound is within 5 days of dating by LMP. There are 2 subchorionic hemorrhages measuring up to 3 cm and 2.1 cm on the opposite size of the ges tational sac. 2.4 cm complex cystic lesion in the right ovary is likely a hemorrhagic/corpus luteal cyst. RPTAT: EE Physician Gt Date Time Electronically viewed and signed by Physician Gt on 03/04/2017 10:32 RA/
[2017-03-04] MEDS ORDERED: ACET500C5 PO (12:55)
[2017-03-04] MEDS ORDERED: CEPH-443 PO (12:56)
[2017-03-04] MEDS ORDERED: ONDA4TAB8 PO (12:56)
[2017-03-04 13:09] VITALS: BP 129/79; PULSE 87; RESP 18; TEMP 98.4
== END 2017-03-04 13:10 | disposition home or self-care (01) ==
LOC: FTE 08:50
DX: O26.891 Other specified pregnancy related conditions, first trimester (principal); O99.89 Other specified diseases and conditions complicating pregnancy, childbirth and the puerperium; O21.9 Vomiting of pregnancy, unspecified; R51 Headache; M54.9 Dorsalgia, unspecified; R10.13 Epigastric pain; R10.33 Periumbilical pain; Z3A.01 Less than 8 weeks gestation of pregnancy
CPT/HCPCS: 36415; 76801; 76817; 80053; 81001; 83690; 84702; 85025; 86900; 86901; 96374; J2405; Z7502; Z7610

== ENCOUNTER 2017-10-14 12:30 | Outpatient (CLI) | END 2017-10-14 15:00 | disposition home or self-care (01) ==

== ENCOUNTER 2017-10-26 13:55 | Inpatient (IN) | END 2017-10-29 18:44 | disposition home or self-care (01) | DRG 775 ==

== ENCOUNTER 2018-02-22 20:56 | Emergency (ER) | END 2018-02-23 00:51 | disposition home or self-care (01) ==

== ENCOUNTER 2018-04-04 08:39 | Emergency (ER) | END 2018-04-04 10:56 | disposition home or self-care (01) ==